=== PATIENT | female | born 1950 | race Caucasian/White ===

== ENCOUNTER 2019-08-20 17:02 | Emergency (ER) | payer OTHER, BC ==
--- NOTE | 2019-08-20 17:14 | PDOC ---
Rapid Medical Evaluation Time Seen by Provider: 08/20/19 17:09 Medical Evaluation: 08/20/19 17:10 I performed a brief in-person evaluation of this patient. 69-year-old female history of spinal stenosis, HLD, left arthroscopic meniscus repair 2003, felt a "pop" in her leg when standing up from [employer] chair, now with left knee pain. [id number] Pain with extension of knee Tenderness lateral aspect of patella Normal sensation I have ordered the following: Left knee xray Patient will proceed to [facility] for further evaluation. 08/20/19 17:14 Discharge Disposition - Diagnosis Left knee pain - Discharge Dispostion Condition at time of disposition: Stable - Referrals - Patient Instructions - Post Discharge Activity
[2019-08-20 17:17] VITALS: BP 149/53; PULSE 58; TEMP 98.3; BMI 32.8
--- NOTE | 2019-08-20 19:41 | PDOC ---
History of Present Illness - General Chief Complaint: Pain, Acute Stated Complaint: LT KNEE PAIN Time Seen by Provider: 08/20/19 17:09 - History of Present Illness Initial Comments: 08/20/19 19:36 CHIEF COMPLAINT: knee pain HISTORY OF PRESENT ILLNESS: 69-year-old female history of spinal stenosis, HLD, left arthroscopic meniscus repair 2003 presents to fast track with left knee pain. Patient reports she recently was having problems with her R knee and has had x-rays and ultrasound done on the RLE and was diagnosed with osteoporosis. She was due for b/l knee x-rays tomorrow but at the hair salon today she got up from her seat and felt a snap in her left knee and sat down immediately. No recent travel or sick contacts. PAST MEDICAL HISTORY: Denies past medical history FAMILY HISTORY: Denies SOCIAL HISTORY: Denies tobacco, alcohol, illicit drug use. SURGICAL HISTORY: Denies ALLERGIES: sulfa REVIEW OF SYSTEMS General/Constitutional: Denies fever or chills. Denies weakness, weight change. HEENT: Denies change in vision. Denies ear pain or discharge. Denies sore throat. Cardiovascular: Denies chest pain or shortness of breath. Respiratory: Denies cough, wheezing, or hemoptysis. Gastrointestinal: Denies nausea, vomiting, diarrhea or constipation. Denies rectal bleeding. Genitourinary: Denies dysuria, frequency, or change in urination. Musculoskeletal: Knee pain. Skin and breasts: Denies rash or easy bruising. Neurologic: Denies headache, vertigo, loss of consciousness, or loss of sensation. Psychiatric: Denies depression or anxiety. PHYSICAL EXAM General Appearance: Well-appearing, appropriately dressed. No apparent distress , no intoxication. HEENT: EOMI, PERRLA, normal ENT inspection, normal voice, TMs normal, pharynx normal. No conjunctival pallor. No photophobia, scleral icterus. Neck: Supple. Trachea midline. No tenderness, rigidity, carotid bruit, stridor , lymphadenopathy, or thyromegaly. Respiratory/Chest: Lungs CTAB. No shortness of breath, chest tenderness, respiratory distress, accessory muscle use. No crackles, rales, rhonchi, stridor , wheezing, dullness Cardiovascular: RRR. S1, S2. No JVD, murmur, bradycardia, tachycardia. Vascular Pulses: Dorsalis-Pedis (R): 2+, Dorsalis-Pedis (L): 2+ Gastrointestinal/Abdominal: Normal bowel sounds. Abdomen soft, non-distended. No tenderness or rebound tenderness. No organomegaly, pulsatile mass, guarding , hernia, hepatomegaly, splenomegaly. Lymphatic: No adenopathy, tenderness. Musculoskeletal/Extremities: Valgus left knee. Normal inspection. FROM of all extremities, normal capillary refill. Pelvis Stable. No CVA tenderness. No tenderness to extremities, pedal edema, swelling, erythema or deformity. Integumentary: Appropriate color, dry, warm. No cyanosis, erythema, jaundice or rash Neurologic: embedded software programmer II-XII intact. Fully oriented, alert. Appropriate mood/affect. Motor strength 5/5. No appreciable EOM palsy, facial droop or sensory deficit. 08/20/19 19:54 08/20/19 20:05 Past History - Past Medical History Allergies/Adverse Reactions: Allergies Allergy/AdvReac Type Severity Reaction Status Date / Time Sulfa (Sulfonamide Allergy Verified 08/20/19 20:00 Antibiotics) sulfa Allergy Uncoded 08/20/19 17:12 Home Medications: Ambulatory Orders Cane 1 each ASDIR #1 each 08/20/19 Diclofenac Sodium [Voltaren] 100 gm TP TID #1 tube 08/20/19 COPD: No Hypercholesterolemia: Yes Other medical history: spinal stenosis, chronic knee pain - Immunization History Immunization Up to Date: No - Psycho Social/Smoking Cessation Hx Smoking History: Never smoked Have you smoked in the past 12 months: No Information on smoking cessation initiated: No Hx Alcohol Use: No Drug/Substance Use Hx: No *Physical Exam - Vital Signs Last Vital Signs Temp Pulse Resp BP Pulse Ox 98.3 F 58 L 16 149/53 L 99 08/20/19 17:12 08/20/19 17:12 08/20/19 17:12 08/20/19 17:12 08/20/19 17:12 ED Treatment Course - RADIOLOGY Radiology Studies Ordered: Category Date Time Status KNEE 4 POS-RIGHT [RAD] Stat Radiology 08/20/19 18:40 Ordered Medical Decision Making - Medical Decision Making 08/20/19 19:41 69-year-old female history of spinal stenosis, HLD, left arthroscopic meniscus repair 2003 presents to ED with L knee pain. -b/l knee x-rays 08/20/19 20:17 X-ray suggestive of bilateral degenerative joint changes. -Toradol IM for pain Patient to f/u with ortho for further management. Advised patient to take medication as prescribed and follow up with ortho within the next week. Advised patient of signs and symptoms for return to ED. Patient verbalized understanding and agrees to plan. Discharge - Discharge Information Problems reviewed: Yes Clinical Impression/Diagnosis: Left knee pain Qualifiers: Chronicity: acute Qualified Code(s): M25.562 - Pain in left knee Osteoarthritis Qualifiers: Osteoarthritis location: knee Osteoarthritis type: unspecified Laterality: right Qualified Code(s): M17.11 - Unilateral primary osteoarthritis, right knee Condition: Stable Disposition: HOME - Admission No - Additional Discharge Information Prescriptions: Cane 1 each MC ASDIR #1 each Diclofenac Sodium [Voltaren] 100 gm TP TID #1 tube - Follow up/Referral Referrals: Leonila Gómez [Primary Care Provider] - Mars Srinivasan DO [Staff Physician] - - Patient Discharge Instructions Patient Printed Discharge Instructions: Osteoarthritis Additional Instructions: Please take medications as prescribed and follow up with orthopedics as discussed. If you develop any new or worsening symptoms, please return to the ER. - Post Discharge Activity
[2019-08-20] MEDS ORDERED: KETOROLAC TROMETHAMINE 30 MG/1 ML VIAL IM ONE (19:59)
[2019-08-20] MEDS ORDERED: KETOROLAC TROMETHAMINE 30 MG/1 ML VIAL ONE (20:00)
== END 2019-08-20 20:30 | disposition home or self-care (01) ==
LOC: JERFT 17:02
PROC: 3E0233Z Introduction of Anti-inflammatory into Muscle, Percutaneous Approach (ICD-10-PCS; principal; 2019-08-20)
DX: M17.0 Bilateral primary osteoarthritis of knee (principal); E78.5 Hyperlipidemia, unspecified; M48.00 Spinal stenosis, site unspecified; Z88.2 Allergy status to sulfonamides
CPT/HCPCS: 73564-TC-LT-FY; 73564-TC-RT-FY; 96372; 99281-25

== ENCOUNTER 2021-05-21 07:28 | Day surgery (SDC) | payer OTHER, BC ==
[2021-05-21 07:56] VITALS: TEMP 98; BMI 31.2
[2021-05-21] MEDS ORDERED: PROPOFOL 20 ML ONE ×4 (08:19)
[2021-05-21] MEDS ORDERED: LIDOCAINE HCL/PF 2% SDV 5ML VIAL ONE (08:19)
[2021-05-21 09:31] VITALS: BP 105/68; PULSE 65
== END 2021-05-21 09:45 | disposition home or self-care (01) ==
LOC: FASU 07:28
PROVIDERS: ATTEND Internal Medicine Gastroenterology
PROC: 0DBK8ZX Excision of Ascending Colon, Via Natural or Artificial Opening Endoscopic, Diagnostic (ICD-10-PCS; principal; 2021-05-21 08:37)
DX: Z86.010 Personal history of colon polyps (principal); D12.2 Benign neoplasm of ascending colon; K57.30 Diverticulosis of large intestine without perforation or abscess without bleeding
CPT/HCPCS: 88305-TC